=== PATIENT | male | born 1960 | race Caucasian/White ===

== ENCOUNTER 2018-06-08 23:57 | Inpatient (IN) | payer OTHER ==
[~2018-06-08] VITALS: Ht 180.3 cm; Wt 90.0 kg
[2018-06-09 00:06] VITALS: Ht 180.3 cm; Wt 90.0 kg
[2018-06-09 00:40] LABS: ALBUMIN 3.8 g/dL (3.4-5.0); BILIRUBIN TOTAL 0.5 mg/dL (0.20-1.00); CALCIUM 8.8 mg/dL (8.5-10.1); CARBON DIOXIDE 28.1 mmol/L (21-32); CREATININE SERUM 1.3 mg/dL (0.7-1.3); POTASSIUM SERUM 3.8 mmol/L (3.5-5.1); TOTAL PROTEIN, SERUM 6.9 g/dL (6.4-8.2)
[2018-06-09 00:49] LABS: BASOPHIL % 0.6 % (0-2); PLATELET COUNT 156 x10^3mcL (130-400); RED CELL DISTRIBUTION WIDTH 13.2 % (11.5-14.5)
[2018-06-09] MEDS ORDERED: METOPROLOL SUCC50 M2 (01:16)
[2018-06-09] MEDS ORDERED: LISINOPRIL10 MG (01:16)
[2018-06-09] MEDS ORDERED: LIPI10 (01:17)
[2018-06-09] MEDS ORDERED: CARAFATE1 GM (01:17)
[2018-06-09] MEDS ORDERED: AMBIEN5 MG (01:18)
[2018-06-09] MEDS ORDERED: KLOR-CON SPRIN10 MEQ (01:18)
[2018-06-09 02:07] VITALS: BP 149/70
[2018-06-09 06:01] VITALS: BP 136/67
[2018-06-09 09:19] VITALS: BP 141/64
[2018-06-09 12:09] VITALS: BP 129/66
[2018-06-09 12:34] VITALS: BP 141/64
== END 2018-06-09 15:30 | disposition home or self-care (01) | DRG 313 ==
LOC: ED 23:57 → DU 06-09 01:15
PROVIDERS: Emergency Medicine; ADMIT Internal Medicine Pulmonary Disease
DX: R07.9 Chest pain, unspecified (principal); F41.0 Panic disorder [episodic paroxysmal anxiety]; I10 Essential (primary) hypertension; E78.5 Hyperlipidemia, unspecified; F41.9 Anxiety disorder, unspecified; I25.10 Atherosclerotic heart disease of native coronary artery without angina pectoris; Z95.1 Presence of aortocoronary bypass graft
CPT/HCPCS: J1885

== ENCOUNTER 2018-10-08 15:30 | Emergency (ER) | payer OTHER ==
[~2018-10-08] VITALS: Ht 180.3 cm; Wt 89.4 kg
[~2018-10-08 15:30] MED LIST: AMBIEN5 MG; CARAFATE1 GM; KLOR-CON SPRIN10 MEQ; LIPI10; LISINOPRIL10 MG; METOPROLOL SUCC50 M2
[2018-10-08 15:33] VITALS: Ht 180.3 cm; Wt 89.4 kg
[2018-10-08 16:06] LABS: BASOPHIL % 1.2 % (0-2); PLATELET COUNT 247 x10^3mcL (130-400)
[2018-10-08 16:21] LABS: CALCIUM 9.8 mg/dL (8.5-10.1); CARBON DIOXIDE 29.4 mmol/L (21-32); CHLORIDE SERUM 101 mmol/L (98-107); CREATININE SERUM 1.2 mg/dL (0.7-1.3); GFR1 > 60 mL/min; GLUCOSE SERUM 92 mg/dL (74-106); POTASSIUM SERUM 4.3 mmol/L (3.5-5.1); SODIUM SERUM 137 mmol/L (136-145)
[2018-10-08 16:25] LABS: ALKALINE PHOSPHATASE 58 U/L (46-116); ALT/SGPT 32 U/L (16-63); AST/SGOT 11 U/L (15-37); BILIRUBIN TOTAL 0.65 mg/dL (0.20-1.00); LIPASE 280 IU/L (73-393); TOTAL PROTEIN, SERUM 7.4 g/dL (6.4-8.2)
[2018-10-08 18:49] VITALS: BP 125/68
== END 2018-10-08 18:49 | disposition home or self-care (01) ==
LOC: ED 15:30
PROVIDERS: Emergency Medicine
DX: R07.89 Other chest pain (principal); R10.13 Epigastric pain; I10 Essential (primary) hypertension
CPT/HCPCS: 36415; Q0092

== ENCOUNTER 2018-11-06 10:39 | Emergency (ER) | payer OTHER ==
[~2018-11-06] VITALS: Ht 180.3 cm; Wt 87.1 kg
[2018-11-06 10:44] VITALS: Ht 180.3 cm; Wt 87.1 kg
[2018-11-06 11:27] LABS: BASOPHIL % 0.7 % (0-2); PLATELET COUNT 249 x10^3mcL (130-400); RED CELL DISTRIBUTION WIDTH 13.1 % (11.5-14.5)
[2018-11-06 11:35] LABS: CARBON DIOXIDE 27.5 mmol/L (21-32); CHLORIDE SERUM 102 mmol/L (98-107); CREATININE SERUM 1.2 mg/dL (0.7-1.3); GFR1 > 60 mL/min; GLUCOSE SERUM 105 mg/dL (74-106); POTASSIUM SERUM 4.2 mmol/L (3.5-5.1); SODIUM SERUM 139 mmol/L (136-145)
[2018-11-06 11:40] LABS: ALBUMIN 3.9 g/dL (3.4-5.0); ALKALINE PHOSPHATASE 54 U/L (46-116); ALT/SGPT 34 U/L (16-63); AST/SGOT 11 U/L (15-37); BILIRUBIN TOTAL 0.52 mg/dL (0.20-1.00); TOTAL PROTEIN, SERUM 7.4 g/dL (6.4-8.2)
[2018-11-06 12:01] LABS: T4(THYROXINE) 8.4 ug/dL (4.7-13.3)
[2018-11-06 12:43] VITALS: BP 118/61
== END 2018-11-06 12:43 | disposition home or self-care (01) ==
LOC: ED 10:39
PROVIDERS: Emergency Medicine
DX: K29.70 Gastritis, unspecified, without bleeding (principal); R00.2 Palpitations; I10 Essential (primary) hypertension; Z88.8 Allergy status to other drugs, medicaments and biological substances
CPT/HCPCS: 36415; Q0092